=== PATIENT | male | born 1945 | race Caucasian/White ===

== ENCOUNTER 2024-08-23 12:16 | Inpatient (IN) | payer MEDICARE ==
[2024-08-23] MEDS ORDERED: Ondansetron ODT 4 MG TAB PO PRN (15:31)
[2024-08-23] MEDS: Furosemide 100 MG (10 mL) VIAL SLOW IVP SCH (17:53)
[2024-08-23] MEDS ORDERED: Acetaminophen 325 MG TAB PO PRN (17:58)
[2024-08-23 20:11] LABS: Troponin I 0.037 ng/mL (< 0.028)
[2024-08-23] MEDS: Lisinopril 20 MG TAB PO SCH (21:26)
[2024-08-23] MEDS: Atorvastatin Calcium 40 MG TAB PO SCH (21:26)
[2024-08-23] MEDS: Potassium Chloride 20 MEQ TAB PO SCH (21:26)
[2024-08-23] MEDS: Metoprolol Tartrate 50 MG TAB PO SCH (21:27)
[2024-08-23] MEDS: Gabapentin 100 MG CAP PO SCH (21:27)
[2024-08-24 04:18] LABS: #Basophils 0.03 10x3/uL (0.0-0.2); %Basophils 0.5 % (0.0-1.0); %Eosinophils 5.1 % (0.0-10.0); %Lymphocytes 29.5 % (21.0-51.0); %Monocytes 6.6 % (0.0-10.0); %Neutrophils 58.3 % (42.0-75.0); Hematocrit 36.5 % (42.0-52.0); Hemoglobin 11.6 g/dL (14.0-18.0); Mean Corpuscular HGB CONC 31.8 g/dL (32.0-36.0); Mean Corpuscular Hemoglobin 31.4 pg (27.0-31.0); Mean Corpuscular Volume 98.9 fL (78.0-98.0); Mean Platelet Volume 11.7 fL (7.4-10.4); Platelet Count 168 10x3/uL (130-400); RBC Distribution Width 13.6 % (11.5-14.5); Red Blood Cell (RBC) Count 3.69 mill/uL (4.70-6.10)
[2024-08-24 04:33] LABS: ALT (SGPT) 11 U/L (8-55); AST (SGOT) 23 U/L (5-34); Albumin 3.3 g/dL (3.4-4.8); Alkaline Phosphatase 117 U/L (40-110); Anion Gap 11 mmol/L (10-20); BUN (Urea Nitrogen) 18 mg/dL (8.4-25.7); Bilirubin, Total 0.4 mg/dL (0.2-1.2); Calc. Creatinine Clearance 46 mL/min (70-130); Calcium 8.9 mg/dL (7.8-10.44); Carbon Dioxide 31 mmol/L (23-31); Chloride 104 mmol/L (98-107); Estimated GFR 46; Globulin 3.3 g/dL (2.4-3.5); Glucose 104 mg/dL (83-110); Potassium 3.4 mmol/L (3.5-5.1); Protein, Total 6.6 g/dL (5.8-8.1); Sodium 143 mmol/L (136-145)
[2024-08-24] MEDS: levETIRAcetam 500 MG TAB PO SCH (08:48)
[2024-08-24] MEDS: Enoxaparin 40 MG (0.4 mL) SYRINGE SC SCH (08:48)
[2024-08-24] MEDS: Amlodipine 10 MG TAB PO SCH (08:49)
[2024-08-24] MEDS: Levothyroxine Sodium 100 MCG TAB PO SCH (08:50)
[2024-08-24] MEDS: Aspirin 81 mg Enteric Coated Tablet PO SCH (08:51)
[2024-08-24] MEDS: Cholecalciferol 1,000 UNITS (25 MCG) TAB PO SCH (08:51)
[2024-08-24] MEDS: Magnesium Oxide 400 MG TAB PO SCH (08:51)
[2024-08-24] MEDS: Potassium Chloride 20 MEQ TAB PO SCH ×2 (08:56→11:25)
[2024-08-24] MEDS ORDERED: Non-Formulary Item 1 EACH (Vitamin B Complex [B Complex] 1 TABLET Tablet) PO SCH (09:00)
[2024-08-24] MEDS ORDERED: Aspirin 81 mg Enteric Coated Tablet PO SCH (09:00)
[2024-08-24] MEDS ORDERED: Furosemide 40 MG (4 mL) VIAL SLOW IVP SCH (09:30)
[2024-08-24] MEDS: Multivit, Therapeutic 1 TAB PO SCH (11:25)
[2024-08-24] MEDS: Furosemide 40 MG (4 mL) VIAL SLOW IVP SCH (11:26)
[2024-08-24] MEDS: Gabapentin 300 MG CAP PO SCH (14:27)
[2024-08-24] MEDS: Spironolactone 25 MG TAB PO SCH (15:24)
[2024-08-24] MEDS: Furosemide 100 MG (10 mL) VIAL SLOW IVP SCH (15:25)
[2024-08-24] MEDS: Empagliflozin 25 MG TAB PO SCH (15:32)
[2024-08-24] MEDS ORDERED: Carvedilol 3.125 MG TAB PO SCH (17:00)
[2024-08-24] MEDS ORDERED: Electrolyte Replacement Protocol 1 EACH FS SCH (18:46)
[2024-08-25 04:22] LABS: #Basophils 0.03 10x3/uL (0.0-0.2); %Basophils 0.6 % (0.0-1.0); %Eosinophils 5.5 % (0.0-10.0); %Lymphocytes 30.9 % (21.0-51.0); %Monocytes 8.4 % (0.0-10.0); %Neutrophils 54.4 % (42.0-75.0); Hematocrit 34.9 % (42.0-52.0); Hemoglobin 11.2 g/dL (14.0-18.0); Mean Corpuscular HGB CONC 32.1 g/dL (32.0-36.0); Mean Corpuscular Hemoglobin 31.8 pg (27.0-31.0); Mean Corpuscular Volume 99.1 fL (78.0-98.0); Mean Platelet Volume 11.7 fL (7.4-10.4); Platelet Count 159 10x3/uL (130-400); RBC Distribution Width 13.9 % (11.5-14.5); Red Blood Cell (RBC) Count 3.52 mill/uL (4.70-6.10)
[2024-08-25 04:40] LABS: ALT (SGPT) 11 U/L (8-55); AST (SGOT) 23 U/L (5-34); Alkaline Phosphatase 109 U/L (40-110); Anion Gap 11 mmol/L (10-20); BUN (Urea Nitrogen) 16 mg/dL (8.4-25.7); Bilirubin, Total 0.4 mg/dL (0.2-1.2); Calc. Creatinine Clearance 43 mL/min (70-130); Calcium 8.6 mg/dL (7.8-10.44); Carbon Dioxide 34 mmol/L (23-31); Chloride 102 mmol/L (98-107); Estimated GFR 44; Globulin 3.2 g/dL (2.4-3.5); Glucose 100 mg/dL (83-110); Potassium 3.6 mmol/L (3.5-5.1); Protein, Total 6.2 g/dL (5.8-8.1); Sodium 143 mmol/L (136-145)
[2024-08-25] MEDS: Levothyroxine Sodium 100 MCG TAB PO SCH (05:28)
[2024-08-25] MEDS ORDERED: Electrolyte Replacement Protocol FS PRN (06:15)
[2024-08-25] MEDS ORDERED: Empagliflozin 10 MG TAB PO SCH (09:00)
[2024-08-25] MEDS: Furosemide 40 MG (4 mL) VIAL SLOW IVP SCH (09:55)
[2024-08-25] MEDS: Spironolactone 25 MG TAB PO SCH (09:58)
[2024-08-25] MEDS: Amlodipine 5 MG TAB PO SCH (10:00)
[2024-08-25] MEDS: Acetaminophen 325 MG TAB PO PRN (13:19)
[2024-08-25] MEDS: Sacubitril 24MG/Valsartan 26 MG TAB PO SCH (20:15)
[2024-08-26 04:49] LABS: #Basophils Less than 0.03 10x3/uL (0.0-0.2); %Basophils 0.4 % (0.0-1.0); %Eosinophils 6.2 % (0.0-10.0); %Lymphocytes 29.9 % (21.0-51.0); %Monocytes 7.7 % (0.0-10.0); %Neutrophils 55.8 % (42.0-75.0); Hematocrit 38.1 % (42.0-52.0); Hemoglobin 12.2 g/dL (14.0-18.0); Mean Corpuscular Hemoglobin 31.4 pg (27.0-31.0); Mean Corpuscular Volume 97.9 fL (78.0-98.0); Mean Platelet Volume 12.1 fL (7.4-10.4); Platelet Count 162 10x3/uL (130-400); RBC Distribution Width 13.8 % (11.5-14.5); Red Blood Cell (RBC) Count 3.89 mill/uL (4.70-6.10)
[2024-08-26 04:59] LABS: ALT (SGPT) 13 U/L (8-55); AST (SGOT) 27 U/L (5-34); Albumin 3.2 g/dL (3.4-4.8); Alkaline Phosphatase 109 U/L (40-110); Anion Gap 13 mmol/L (10-20); BUN (Urea Nitrogen) 19 mg/dL (8.4-25.7); Bilirubin, Total 0.4 mg/dL (0.2-1.2); Calc. Creatinine Clearance 41 mL/min (70-130); Calcium 8.8 mg/dL (7.8-10.44); Carbon Dioxide 30 mmol/L (23-31); Chloride 102 mmol/L (98-107); Estimated GFR 45; Globulin 3.4 g/dL (2.4-3.5); Glucose 181 mg/dL (83-110); Potassium 3.3 mmol/L (3.5-5.1); Protein, Total 6.6 g/dL (5.8-8.1); Sodium 142 mmol/L (136-145)
[2024-08-26] MEDS: Empagliflozin 10 MG TAB PO SCH (09:19)
[2024-08-26] MEDS: Potassium Chloride 20 MEQ TAB PO SCH (09:19)
[2024-08-26] MEDS: Amlodipine 5 MG TAB PO SCH (09:19)
[2024-08-26] MEDS: Furosemide 40 MG (4 mL) VIAL SLOW IVP SCH (09:20)
[2024-08-26] MEDS: Furosemide 100 MG (10 mL) VIAL SLOW IVP SCH (15:23)
[2024-08-27 05:05] LABS: #Basophils 0.03 10x3/uL (0.0-0.2); %Basophils 0.5 % (0.0-1.0); %Eosinophils 5.2 % (0.0-10.0); %Lymphocytes 29.1 % (21.0-51.0); %Monocytes 9.5 % (0.0-10.0); %Neutrophils 55.5 % (42.0-75.0); Hemoglobin 13.6 g/dL (14.0-18.0); Mean Corpuscular HGB CONC 31.6 g/dL (32.0-36.0); Mean Corpuscular Hemoglobin 31.2 pg (27.0-31.0); Mean Corpuscular Volume 98.6 fL (78.0-98.0); Mean Platelet Volume 12.2 fL (7.4-10.4); Platelet Count 170 10x3/uL (130-400); RBC Distribution Width 13.7 % (11.5-14.5); Red Blood Cell (RBC) Count 4.36 mill/uL (4.70-6.10)
[2024-08-27 05:44] LABS: ALT (SGPT) 13 U/L (8-55); AST (SGOT) 28 U/L (5-34); Albumin 3.5 g/dL (3.4-4.8); Alkaline Phosphatase 122 U/L (40-110); Anion Gap 17 mmol/L (10-20); BUN (Urea Nitrogen) 20 mg/dL (8.4-25.7); Bilirubin, Total 0.6 mg/dL (0.2-1.2); Calc. Creatinine Clearance 35 mL/min (70-130); Calcium 9.3 mg/dL (7.8-10.44); Carbon Dioxide 29 mmol/L (23-31); Chloride 103 mmol/L (98-107); Estimated GFR 38; Globulin 3.7 g/dL (2.4-3.5); Glucose 105 mg/dL (83-110); Potassium 3.9 mmol/L (3.5-5.1); Protein, Total 7.2 g/dL (5.8-8.1); Sodium 145 mmol/L (136-145)
[2024-08-27 05:46] VITALS: BMI 22.8
[2024-08-27 12:08] VITALS: BP 136/65; TEMP 97.5
== END 2024-08-27 13:01 | disposition home or self-care (01) | DRG 280 ==
LOC: 2NO 13:11
PROVIDERS: ADMIT Emergency Medicine; ATTEND Emergency Medicine
DX: I13.0 Hypertensive heart and chronic kidney disease with heart failure and stage 1 through stage 4 chronic kidney disease, or unspecified chronic kidney disease (principal); I50.23 Acute on chronic systolic (congestive) heart failure; I21.A1 Myocardial infarction type 2; J96.01 Acute respiratory failure with hypoxia; N17.9 Acute kidney failure, unspecified; G40.909 Epilepsy, unspecified, not intractable, without status epilepticus; I25.10 Atherosclerotic heart disease of native coronary artery without angina pectoris; I73.9 Peripheral vascular disease, unspecified; F17.210 Nicotine dependence, cigarettes, uncomplicated; E03.9 Hypothyroidism, unspecified; E87.6 Hypokalemia; N18.32 Chronic kidney disease, stage 3b; E78.00 Pure hypercholesterolemia, unspecified; D63.1 Anemia in chronic kidney disease; Z95.1 Presence of aortocoronary bypass graft; Z88.1 Allergy status to other antibiotic agents; Z86.73 Personal history of transient ischemic attack (TIA), and cerebral infarction without residual deficits; Z79.890 Hormone replacement therapy; Z79.899 Other long term (current) drug therapy; Z79.82 Long term (current) use of aspirin; Z98.890 Other specified postprocedural states
CPT/HCPCS: 36415; 80053; 83880; 85025; 93306; 97139; J1650; J1940

== ENCOUNTER 2024-11-07 10:44 | Inpatient (IN) | payer MEDICARE, OTHER ==
[2024-11-07] MEDS ORDERED: predniSONE 20 MG TAB ONE (12:47)
[2024-11-07 13:44] LABS: ALT (SGPT) 18 U/L (Less than 45); AST (SGOT) 37 U/L (11-34); Albumin 3.2 g/dL (3.1-4.5); Alkaline Phosphatase 111 U/L (40-110); Anion Gap 14 mmol/L (10-20); BUN (Urea Nitrogen) 31 mg/dL (8.4-25.7); Bilirubin, Total 0.6 mg/dL (0.3-1.2); Calc. Creatinine Clearance 0 mL/min (70-130); Calcium 9.1 mg/dL (7.8-10.44); Carbon Dioxide 22 mmol/L (23-31); Chloride 107 mmol/L (98-107); Estimated GFR 26; Globulin 3.7 g/dL (2.4-3.5); Glucose 120 mg/dL (83-110); Protein, Total 6.9 g/dL (5.8-8.1); Sodium 138 mmol/L (136-145)
[2024-11-07 13:54] LABS: Hematocrit 35.6 % (42.0-52.0); Hemoglobin 11.8 g/dL (14.0-18.0); Mean Corpuscular HGB CONC 33.1 g/dL (32.0-36.0); Mean Corpuscular Hemoglobin 32.7 pg (27.0-31.0); Mean Corpuscular Volume 98.6 fL (78.0-98.0); Platelet Count 107 10x3/uL (130-400); RBC Distribution Width 14.4 % (11.5-14.5); Red Blood Cell (RBC) Count 3.61 mill/uL (4.70-6.10)
[2024-11-07 13:58] LABS: Band 20 % (5-11); Burr Cells SLIGHT = 2-5 cells HPF (0-1); Large Platelets 7.9 % (0-5); Lymphocytes 3 % (21-51); Monocytes 3 % (0-10); Neutrophil 73 % (42-75); Plasma Cells 1 % (0-0); Platelet Adequacy Comment Platelets Decreased; Polychromasia SLIGHT = 2-3 cells HPF (0-2)
[2024-11-07 14:01] LABS: Troponin I 0.336 ng/mL (< 0.028)
[2024-11-07 14:07] LABS: Bilirubin Negative (Negative); Blood, Urine 1+ (Negative); Clarity Turbid (Clear); Glucose, Urine (Dipstick) 300 mg/dL (Negative); Ketone, Urine Negative (Negative); Leukocyte 500 Leu/uL (Negative); Nitrite Negative (Negative); Protein, Urine (Dipstick) 200 mg/dL (Neg-Trace); RBC/HPF 0-3 HPF (0-3); Specific Gravity, Urine 1.023 (1.002-1.036); Urobilinogen Normal mg/dL (Less than 2); WBC/HPF Greater than 50 HPF (0-3); pH, Urine 5.5 (5.0-9.0)
[2024-11-07 14:08] LABS: Bacteria/HPF 1+ HPF (None Seen); CAUTI Indications for Culture Dysuria,urgency,freq; Squamous Epithelial 0-3 HPF (0-3)
[2024-11-07 14:09] LABS: Urine Culture Reflex Yes Yes
[2024-11-07] MEDS ORDERED: Aspirin Chewable 81 MG TAB ONE (14:11)
[2024-11-07] MEDS ORDERED: Azithromycin 500 MG VIAL ONE (15:05)
[2024-11-07] MEDS ORDERED: Clindamycin/D5W 600 mg/50 ml Premix Bag ONE (15:05)
[2024-11-07] MEDS ORDERED: Cefepime 2 GM VIAL ONE (15:06)
[2024-11-07] MEDS ORDERED: Sodium Chloride 0.9% 100 ML ONE (15:06)
[2024-11-07] MEDS ORDERED: Ondansetron ODT 4 MG TAB PO PRN (15:28)
[2024-11-07] MEDS ORDERED: Acetaminophen 325 MG TAB PO PRN (15:28)
[2024-11-07] MEDS ORDERED: Benzonatate 100 MG CAP PO PRN (16:08)
[2024-11-07] MEDS ORDERED: Ipratropium/Albuterol 3 ML NEB NEB PRN (16:09)
[2024-11-07 16:46] LABS: Lactic Acid 1.74 mmol/L (0.50-2.20)
[2024-11-07 17:01] LABS: Critical Call Chem Troponin I RESULT DECREASING; Troponin I 0.276 ng/mL (< 0.028)
[2024-11-07 19:14] VITALS: BMI 26.1
[2024-11-07] MEDS: Gabapentin 100 MG CAP PO SCH (20:14)
[2024-11-07] MEDS: guaiFENesin ER 600 MG TAB PO SCH (20:15)
[2024-11-07] MEDS: levETIRAcetam 500 MG TAB PO SCH (20:15)
[2024-11-07] MEDS: Sacubitril 49 MG/Valsartan 51 MG TABLET PO SCH (20:15)
[2024-11-07 22:01] LABS: Critical Call Chem Troponin I RESULT DECREASING; Troponin I 0.205 ng/mL (< 0.028)
[2024-11-08] MEDS: Levothyroxine Sodium 100 MCG TAB PO SCH (05:00)
[2024-11-08 05:38] LABS: #Basophils 0.03 10x3/uL (0.0-0.2); #Eosinophils Less than 0.03 10x3/uL (0.0-0.7); %Basophils 0.2 % (0.0-1.0); %Lymphocytes 6.6 % (21.0-51.0); %Monocytes 3.2 % (0.0-10.0); %Neutrophils 89.4 % (42.0-75.0); Hemoglobin 12.8 g/dL (14.0-18.0); Mean Corpuscular HGB CONC 32.8 g/dL (32.0-36.0); Mean Corpuscular Hemoglobin 32.2 pg (27.0-31.0); Platelet Count 101 10x3/uL (130-400); RBC Distribution Width 14.4 % (11.5-14.5); Red Blood Cell (RBC) Count 3.98 mill/uL (4.70-6.10)
[2024-11-08 06:02] LABS: ALT (SGPT) 22 U/L (Less than 45); AST (SGOT) 40 U/L (11-34); Albumin 3.1 g/dL (3.1-4.5); Alkaline Phosphatase 113 U/L (40-110); Anion Gap 15 mmol/L (10-20); BUN (Urea Nitrogen) 38 mg/dL (8.4-25.7); Bilirubin, Total 0.5 mg/dL (0.3-1.2); Calc. Creatinine Clearance 29 mL/min (70-130); Carbon Dioxide 20 mmol/L (23-31); Chloride 110 mmol/L (98-107); Estimated GFR 31; Globulin 3.8 g/dL (2.4-3.5); Glucose 153 mg/dL (83-110); Potassium 5.2 mmol/L (3.5-5.1); Protein, Total 6.9 g/dL (5.8-8.1); Sodium 140 mmol/L (136-145)
[2024-11-08] MEDS: Cefepime 2 GM in Sodium Chloride 0.9% 100 ML IVPB SCH (08:43)
[2024-11-08] MEDS: Spironolactone 25 MG TAB PO SCH ×2 (11:20→17:13)
[2024-11-08] MEDS: Amlodipine 10 MG TAB PO SCH (11:20)
[2024-11-08] MEDS: Aspirin 81 mg Enteric Coated Tablet PO SCH (11:20)
[2024-11-08] MEDS: Empagliflozin 10 MG TAB PO SCH ×2 (11:21→17:14)
[2024-11-08] MEDS: Gabapentin 100 MG CAP PO SCH ×2 (11:21→17:12)
[2024-11-08] MEDS: Atorvastatin Calcium 40 MG TAB PO SCH (11:21)
[2024-11-08] MEDS: Gabapentin 400 MG CAP PO SCH ×2 (11:21→17:12)
[2024-11-08] MEDS: Cholecalciferol 1,000 UNITS (25 MCG) TAB PO SCH (11:21)
[2024-11-08] MEDS: Furosemide 20 MG TAB PO SCH (11:21)
[2024-11-08] MEDS: Multivit, Therapeutic 1 TAB PO SCH (11:22)
[2024-11-08] MEDS: Nicotine 21 MG PATCH TD SCH (11:22)
[2024-11-08] MEDS: Potassium Chloride 20 MEQ TAB PO SCH ×2 (11:22→17:14)
[2024-11-08] MEDS: Magnesium Oxide 400 MG TAB PO SCH ×2 (11:22→17:13)
[2024-11-08] MEDS: Multivitamin w/Zinc Stress 1 TAB PO SCH (11:23)
[2024-11-08] MEDS ORDERED: Cefepime 1 GM in Sodium Chloride 0.9% 100 ML IVPB SCH (15:00)
[2024-11-08 15:36] VITALS: BMI 25.0
[2024-11-08] MEDS: guaiFENesin ER 600 MG TAB PO SCH (17:13)
[2024-11-08] MEDS: Sacubitril 49 MG/Valsartan 51 MG TABLET PO SCH (17:13)
[2024-11-08] MEDS: levETIRAcetam 500 MG TAB PO SCH (17:14)
[2024-11-08] MEDS: Cefepime 1 GM in Sodium Chloride 0.9% 100 ML IVPB SCH (20:13)
[2024-11-09] MEDS: Dicyclomine 20 MG TAB ONE (01:45)
[2024-11-09] MEDS: HYDROcodone/Acetaminophen 5/325 mg Tablet ONE ×2 (01:45→03:00)
[2024-11-09 03:34] LABS: Bilirubin Negative (Negative); Blood, Urine 1+ (Negative); Clarity Clear (Clear); Glucose, Urine (Dipstick) 200 mg/dL (Negative); Ketone, Urine Negative (Negative); Leukocyte 250 Leu/uL (Negative); Nitrite Negative (Negative); Protein, Urine (Dipstick) 70 mg/dL (Neg-Trace); RBC/HPF 0-3 HPF (0-3); Specific Gravity, Urine 1.016 (1.002-1.036); Squamous Epithelial None Seen HPF (0-3); Urobilinogen Normal mg/dL (Less than 2); WBC/HPF 21-50 HPF (0-3); pH, Urine 5.5 (5.0-9.0)
[2024-11-09 03:46] LABS: Bacteria/HPF 1+ HPF (None Seen)
[2024-11-09] MEDS: Furosemide 20 MG TAB PO SCH (05:17)
[2024-11-09] MEDS: Cholecalciferol 1,000 UNITS (25 MCG) TAB PO SCH (05:17)
[2024-11-09] MEDS: Atorvastatin Calcium 40 MG TAB PO SCH (05:17)
[2024-11-09] MEDS: Amlodipine 10 MG TAB PO SCH (05:18)
[2024-11-09] MEDS: Aspirin 81 mg Enteric Coated Tablet PO SCH (05:18)
[2024-11-09] MEDS: Multivit, Therapeutic 1 TAB PO SCH (05:19)
[2024-11-09] MEDS: Multivitamin w/Zinc Stress 1 TAB PO SCH (05:21)
[2024-11-09 05:59] LABS: #Basophils Less than 0.03 10x3/uL (0.0-0.2); #Eosinophils Less than 0.03 10x3/uL (0.0-0.7); %Basophils 0.1 % (0.0-1.0); %Eosinophils 0.1 % (0.0-10.0); %Lymphocytes 5.1 % (21.0-51.0); %Monocytes 3.3 % (0.0-10.0); %Neutrophils 90.9 % (42.0-75.0); Hematocrit 38.2 % (42.0-52.0); Hemoglobin 12.9 g/dL (14.0-18.0); Mean Corpuscular HGB CONC 33.8 g/dL (32.0-36.0); Mean Corpuscular Hemoglobin 31.9 pg (27.0-31.0); Mean Corpuscular Volume 94.3 fL (78.0-98.0); Mean Platelet Volume 12.4 fL (7.4-10.4); Platelet Count 117 10x3/uL (130-400); RBC Distribution Width 14.1 % (11.5-14.5); Red Blood Cell (RBC) Count 4.05 mill/uL (4.70-6.10)
[2024-11-09 06:08] LABS: ALT (SGPT) 24 U/L (Less than 45); AST (SGOT) 46 U/L (11-34); Albumin 2.6 g/dL (3.1-4.5); Alkaline Phosphatase 95 U/L (40-110); Anion Gap 16 mmol/L (10-20); BUN (Urea Nitrogen) 45 mg/dL (8.4-25.7); Bilirubin, Total 0.4 mg/dL (0.3-1.2); Calc. Creatinine Clearance 32 mL/min (70-130); Calcium 8.4 mg/dL (7.8-10.44); Carbon Dioxide 14 mmol/L (23-31); Chloride 113 mmol/L (98-107); Estimated GFR 33; Globulin 3.4 g/dL (2.4-3.5); Glucose 88 mg/dL (83-110); Potassium 4.6 mmol/L (3.5-5.1); Sodium 138 mmol/L (136-145)
[2024-11-09] MEDS: HYDROcodone/Acetaminophen 5/325 mg Tablet PO SCH ×2 (07:24→07:25)
[2024-11-09] MEDS: Dicyclomine 20 MG TAB PO SCH (07:25)
[2024-11-09] MEDS ORDERED: Cefepime 2 GM in Sodium Chloride 0.9% 100 ML IVPB SCH (08:00)
[2024-11-09] MEDS: Cefepime 1 GM VIAL ONE (08:42)
[2024-11-09] MEDS: Cefepime 2 GM in Sodium Chloride 0.9% 100 ML IVPB SCH (08:59)
[2024-11-09] MEDS ORDERED: Iopamidol 370 76% 100 ML VIAL ONE (10:45)
[2024-11-09] MEDS ORDERED: GASTROGRAFIN 30 ML BOT ONE (10:49)
[2024-11-09] MEDS: metroNIDAZOLE 500 MG in Premix 1 BAG IVPB SCH (10:54)
[2024-11-09] MEDS ORDERED: EPINEPHrine 1 MG/ML VIAL ONE (11:31)
[2024-11-09] MEDS ORDERED: Bupivacaine 0.25% HCL 30 ML VIAL ONE (11:32)
[2024-11-09] MEDS ORDERED: Lidocaine 1% PF 5 ML VIAL ONE (11:33)
[2024-11-09] MEDS ORDERED: Dexamethasone 20 MG/5 ML VIAL ONE (11:33)
[2024-11-09] MEDS ORDERED: Ondansetron PF 4 MG/2 ML Vial ONE (11:33)
[2024-11-09] MEDS ORDERED: Rocuronium Bromide 10 MG/ML (10ML VIAL) ONE (11:33)
[2024-11-09] MEDS ORDERED: PROPOFOL 20 ML ONE (11:33)
[2024-11-09] MEDS ORDERED: fentaNYL PF 100 MCG/2 ML SYRINGE ONE (11:33)
[2024-11-09] MEDS ORDERED: PHENYLEPHRINE-NS 100 MCG/ML 10 ML SYRINGE ONE (11:37)
[2024-11-09] MEDS ORDERED: Glycopyrrolate 0.2 MG/ML 5 ML SYRINGE ONE (11:37)
[2024-11-09] MEDS ORDERED: Lidocaine 2% 6 ML (Jelly) SYR ONE (11:40)
[2024-11-09] MEDS ORDERED: ePHEDrine Sulfate 50 MG/10 ML VIAL ONE (11:45)
[2024-11-09] MEDS ORDERED: Ipratropium/Albuterol 3 ML NEB ONE (12:23)
[2024-11-09] MEDS ORDERED: CEFAZOLIN 2 GM VIAL ONE (12:26)
[2024-11-09] MEDS ORDERED: Etomidate 40 MG (20 mL) VIAL ONE (12:38)
[2024-11-09] MEDS ORDERED: Sodium Chloride 0.9% 100 ML ONE (12:49)
[2024-11-09] MEDS ORDERED: Midazolam HCl 2 mg/2 ml Vial ONE (12:59)
[2024-11-09] MEDS ORDERED: fentaNYL 50 mcg/mL 1 mL Vial ONE (14:07)
[2024-11-09] MEDS ORDERED: SUGAMMADEX SODIUM 200 MG/2 ML VIAL ONE (14:17)
[2024-11-09] MEDS: Cefepime 1 GM in Sodium Chloride 0.9% 100 ML IVPB SCH (20:27)
[2024-11-10 05:52] LABS: #Basophils Less than 0.03 10x3/uL (0.0-0.2); #Eosinophils Less than 0.03 10x3/uL (0.0-0.7); %Basophils 0.1 % (0.0-1.0); %Lymphocytes 6.5 % (21.0-51.0); %Monocytes 2.4 % (0.0-10.0); %Neutrophils 90.6 % (42.0-75.0); Hematocrit 41.8 % (42.0-52.0); Hemoglobin 13.5 g/dL (14.0-18.0); Mean Corpuscular HGB CONC 32.3 g/dL (32.0-36.0); Mean Corpuscular Hemoglobin 31.9 pg (27.0-31.0); Mean Corpuscular Volume 98.8 fL (78.0-98.0); Mean Platelet Volume 12.6 fL (7.4-10.4); Platelet Count 154 10x3/uL (130-400); RBC Distribution Width 14.4 % (11.5-14.5); Red Blood Cell (RBC) Count 4.23 mill/uL (4.70-6.10)
[2024-11-10 06:24] LABS: ALT (SGPT) 30 U/L (Less than 45); AST (SGOT) 36 U/L (11-34); Albumin 3.1 g/dL (3.1-4.5); Alkaline Phosphatase 92 U/L (40-110); Anion Gap 15 mmol/L (10-20); BUN (Urea Nitrogen) 46 mg/dL (8.4-25.7); Bilirubin, Total 0.4 mg/dL (0.3-1.2); Calc. Creatinine Clearance 25 mL/min (70-130); Calcium 8.7 mg/dL (7.8-10.44); Carbon Dioxide 17 mmol/L (23-31); Chloride 110 mmol/L (98-107); Estimated GFR 25; Globulin 4.1 g/dL (2.4-3.5); Glucose 232 mg/dL (83-110); Potassium 4.3 mmol/L (3.5-5.1); Protein, Total 7.2 g/dL (5.8-8.1); Sodium 138 mmol/L (136-145)
[2024-11-10] MEDS: Sodium Chloride 0.9% 1,000 ML IV SCH (09:20)
[2024-11-11 04:33] LABS: #Basophils Less than 0.03 10x3/uL (0.0-0.2); #Eosinophils Less than 0.03 10x3/uL (0.0-0.7); %Basophils 0.1 % (0.0-1.0); %Lymphocytes 7.8 % (21.0-51.0); %Neutrophils 87.5 % (42.0-75.0); Hematocrit 40.2 % (42.0-52.0); Hemoglobin 13.3 g/dL (14.0-18.0); Mean Corpuscular HGB CONC 33.1 g/dL (32.0-36.0); Mean Corpuscular Hemoglobin 31.7 pg (27.0-31.0); Mean Corpuscular Volume 95.9 fL (78.0-98.0); Mean Platelet Volume 11.8 fL (7.4-10.4); Platelet Count 170 10x3/uL (130-400); RBC Distribution Width 14.3 % (11.5-14.5); Red Blood Cell (RBC) Count 4.19 mill/uL (4.70-6.10)
[2024-11-11] MEDS: Amlodipine 5 MG TAB PO SCH (05:00)
[2024-11-11 05:28] LABS: ALT (SGPT) 28 U/L (Less than 45); AST (SGOT) 46 U/L (11-34); Alkaline Phosphatase 104 U/L (40-110); Anion Gap 13 mmol/L (10-20); BUN (Urea Nitrogen) 55 mg/dL (8.4-25.7); Bilirubin, Total 0.4 mg/dL (0.3-1.2); Calc. Creatinine Clearance 24 mL/min (70-130); Calcium 8.8 mg/dL (7.8-10.44); Carbon Dioxide 18 mmol/L (23-31); Chloride 111 mmol/L (98-107); Estimated GFR 24; Globulin 3.7 g/dL (2.4-3.5); Glucose 162 mg/dL (83-110); Potassium 4.7 mmol/L (3.5-5.1); Protein, Total 6.7 g/dL (5.8-8.1); Sodium 137 mmol/L (136-145)
[2024-11-11 16:02] VITALS: BP 132/81; TEMP 98
== END 2024-11-11 16:04 | disposition home or self-care (01) | DRG 853 ==
LOC: ERS 10:44 → ERHOLD 15:04 → OBS 18:24 → OBSVTOIN 11-08 11:28
PROVIDERS: ADMIT Family Medicine; ATTEND Family Medicine
PROC: 0DTJ4ZZ Resection of Appendix, Percutaneous Endoscopic Approach (ICD-10-PCS; principal; 2024-11-08)
PROC: 3E033XZ Introduction of Vasopressor into Peripheral Vein, Percutaneous Approach (ICD-10-PCS; 2024-11-08)
DX: A41.9 Sepsis, unspecified organism (principal); K35.33 Acute appendicitis with perforation, localized peritonitis, and gangrene, with abscess; I13.0 Hypertensive heart and chronic kidney disease with heart failure and stage 1 through stage 4 chronic kidney disease, or unspecified chronic kidney disease; N39.0 Urinary tract infection, site not specified; I24.89 Other forms of acute ischemic heart disease; N17.9 Acute kidney failure, unspecified; N18.4 Chronic kidney disease, stage 4 (severe); I42.9 Cardiomyopathy, unspecified; I50.9 Heart failure, unspecified; Z86.73 Personal history of transient ischemic attack (TIA), and cerebral infarction without residual deficits; F17.210 Nicotine dependence, cigarettes, uncomplicated; Z79.890 Hormone replacement therapy; Z79.899 Other long term (current) drug therapy; Z79.82 Long term (current) use of aspirin; Z86.16 Personal history of COVID-19; I95.9 Hypotension, unspecified; B34.9 Viral infection, unspecified; E03.9 Hypothyroidism, unspecified; G40.909 Epilepsy, unspecified, not intractable, without status epilepticus; E87.5 Hyperkalemia; I25.10 Atherosclerotic heart disease of native coronary artery without angina pectoris; E11.22 Type 2 diabetes mellitus with diabetic chronic kidney disease
CPT/HCPCS: 36415; 71045; 74176; 80053; 81001; 83605; 83880; 84145; 84484; 85025; 86850; 86900; 86901; 87040; 87077; 87086; 87149; 87186; 87428; 88304; 93005; 93306; 96361; 96365; 96367; A4649; J0171; J0456; J0665; J0692; J1100; J2250; J2405; J2704; J3010; J3490; J7512; J7620; Q9963; Q9967